=== PATIENT | male | born 1955 | race Caucasian/White ===

== ENCOUNTER 2020-03-02 13:06 | Emergency (ER) | payer SELFPAY ==
[2020-03-02] MEDS ORDERED: Sodium Chloride 0.9% 10 ML Syringe FLUSH PRN (13:51)
--- NOTE | 2020-03-02 13:58 | EDM.PDOC ---
ED HPI GENERAL MEDICAL PROBLEM - General Chief Complaint: General Stated Complaint: FEEDING TUBE ISSUE,FEET SWELLING AND WEAKNESS Time Seen by Provider: 03/02/20 13:47 Source of Information: Reports: Patient History Limitations: Reports: No Limitations - History of Present Illness INITIAL COMMENTS - FREE TEXT/NARRATIVE: 64-year-old male attends the ED in the accompaniment of his . Patient was diagnosed with cancer of the distal esophagus in August 2019. He presented with back pain and was identified on imaging studies to have metastatic disease to thoracic spine. Subsequently he has known thoracic spinal cord compression with inability to feel normal sensation in his abdomen and pelvis. He still feels he has normal sensation in his lower extremities. However he has developed significant progressive evidence of spinal cord compression over the last 3 days having gone from ability to walk with a shuffling type gait not being able to walk at all today. Patient has had treatments including some forms of chemotherapy from [facility] where he is receiving primary care. He also reportedly has had radiation to cervical 7 vertebra and 2 vertebra in his thoracic spine. Patient had a feeding tube placed left upper quadrant the abdomen in December of this year due to difficulty swallowing and continued aggressive weight loss. He is gone from 297 pounds down to approximately 130 pounds. Weight is a bit higher today probably due to fluid accumulation in his lower extremities. Patient appreciates that his lower extremities are markedly more swollen than they have been over the last week. Patient has urgency to void and no sensation to defecate. He states when he gets the sensation to either void or defecate it is urgent and he has to get there immediately. He is on a bowel regimen of Dulcolax 30 mils once or twice daily which has been keeping his bowels working twice daily. He has appreciated increased abdominal girth and firmness to the lower abdomen. He has also appreciated difficulty with his feeding tube in terms that feeding seem to be backing up and particularly coming up around the feeding tube soaking a pad at the abdominal wall. This is occurred gradually. Patient has constant pain in his thoracic spine and is supposed to be transitioned today from a fentanyl 12 micrograms per hour patch to a 25 mcg/h patch. 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 Has developed progressive weakness and loss of sensation in pelvic organs with retention of sensation in his feet. He has an urge to void and defecate and has to get to the bathroom immediately. He finds that he is voiding on average every hour which is disrupting his sleep severely.) Quality: Reports: Other (Deep aching pain in his upper thoracic spine neck. Some pain in his chest with deep inspiration.) Severity: Moderate (6 out of 10) Improves with: Reports: None Worsens with: Reports: Movement (Worse with movement.) Context: Denies: Activity, Exercise, Lifting, Sick Contact, Trauma, Other Associated Symptoms: Reports: Chest Pain (Mild nonproductive cough. With deep inspiration.), Cough, Loss of Appetite (Currently has a feeding tube in to maintain weight. Apparently receiving between 2 and 3000 fernando/day.), Malaise, Shortness of Breath, Weakness (Generalized weakness much worse for the last 3 days. He is gone from ability to stand and walk or shuffle leg gait to not being able to walk at all today.). Denies: No Other Symptoms ( Primarily in his back.), Confusion, cough w sputum, Diaphoresis, Fever/Chills, Headaches, Nausea/Vomiting, Rash, Seizure, Syncope Treatments TELEPHONER: Reports: Other (see below) (Patient is on fentanyl patch 12 mcg/h and is due to be changed to 25 mcg/h today due to increasing thoracic back pain.) Back Pain Score (Numeric/FACES): 7 Abdomen Pain Score (Numeric/FACES): 8 - Related Data Allergies Allergy/AdvReac Type Severity Reaction Status Date / Time No Known Allergies Allergy Verified 03/02/20 13:18 Home Meds: Home Meds Potassium Chloride 20 meq GTUBE BID #60 tablet.er 03/02/20 [Rx] dexAMETHasone [Decadron] 6 mg PO BID #20 tablet 03/02/20 [Rx] Past Medical History Musculoskeletal History: Reports: Back Pain, Chronic (Primarily in the thoracic spine.), Other (See Below) (Patient reports chronic neck pain. Apparently has had some form of cervical spine fusion. He reports also that he has had some form of thoracic spine fusion procedure as well.) Oncologic (Cancer) History: Reports: Other (See Below) (Diagnosed with metastatic primary esophageal cancer in August of this year. He presented with thoracic back pain which on imaging revealed to be cancer invading the bone. Patient has received some chemotherapy and radiation to cervical spine and areas of thoracic spine for pain relief.) Social & Family History - Living Situation & Occupation Living situation: Reports: Occupation: Disabled ED ROS GENERAL - Review of Systems Review Of Systems: See Below Constitutional: Reports: Malaise, Weakness, Fatigue, Weight Loss (Patient reports losing approximately 55 to 60 pounds of weight over the last 6 months.). Denies: Fever, Chills HEENT: Reports: No Symptoms Respiratory: Reports: Shortness of Breath, Cough, Other (Nonproductive.). Denies: Wheezing, Pleuritic Chest Pain, Sputum Cardiovascular: Reports: Chest Pain (Chest pain radiating to his back primarily with deep inspiration.), Dyspnea on Exertion, Orthopnea (Tends to sleep with head of bed elevated .). Denies: Blood Pressure Problem, Claudication, Lighthea dedness Endocrine: Reports: Fatigue GI/Abdominal: Reports: Abdominal Pain (Like his back.), Difficulty Swallowing (He is having trouble swallowing his normal secretions.), Other (Feeding tube left upper quadrant of the abdomen.) : Reports: Frequency (Voiding almost every hour.), Urgency (Severe urgency to void suddenly occurs) Musculoskeletal: Reports: Neck Pain, Back Pain (Metastatic disease multiple levels.) Skin: Reports: No Symptoms Neurological: Reports: Numbness, Tingling (She reports numbness and loss of sensation throughout the abdomen.), Difficulty Walking (Patient has had chronic problems walking and standing for the last several weeks. However he is gone from being able to shuffle type walk to not being able to walk at all today.), Weakness. Denies: Confusion, Dizziness, Seizure Psychiatric: Reports: No Symptoms Hematologic/Lymphatic: Reports: No Symptoms Immunologic: Reports: No Symptoms ED EXAM, GENERAL - Physical Exam Exam: See Below Exam Limited By: No Limitations General Appearance: Alert, WD/WN, Mild Distress, Other (Is 35.9 degrees. Heart rate 94 in sinus respiratory is 18 with O2 sats of 94% room air BP 122/86.) Eye Exam: Bilateral Eye: Normal Inspection (mild scleral icterus) Throat/Mouth: Other Head: Atraumatic, Normocephalic (Tongue is mildly dry and coated.) Neck: Other (Patient has evidence of previous surgery to his upper thoracic spine lower cervical spine. Kyphosis thoracic spine) Respiratory/Chest: No Respiratory Distress, Decreased Breath Sounds (Decreased air entry to the posterior lung slater bilaterally. Much worse on the left side as compared to the right.), Rales ( left lower lobe.), Rhonchi (Particularly). No: Lungs Clear, Normal Breath Sounds, Respiratory Distress Cardiovascular: Regular Rate, Rhythm, No Gallop, No Murmur, No Rub. No: Normal Peripheral Pulses, No Edema Peripheral Pulses: 1+: Posterior Tibial (L) (Also is 2 feet however severely limited by dependent edema.), Posterior Tibial (R), Dorsalis Pedis (L), Dorsalis Pedis (R), 3+: Carotid (L), Carotid (R) GI/Abdominal: Distended (The abdomen is diffusely distended and very firm to palpation from above his umbilicus to the pubic symphysis. This is compatible with severe ascites. There is increased tympany epigastrium only.), Abnormal Bowel Sounds, Other (All sounds are diminished but present in all 4 quadrants. Feeding tube present left upper quadrant of the abdomen with normal erythema at the ostomy site. There is evidence of some mucus drainage from the wound.) Extremities: Pedal Edema (Plus pitting edema above the knees bilaterally. Skin of lower extremities is taut due to edema.) Neurological: Alert, Oriented, CN II-XII Intact, Normal Cognition Psychiatric: Normal Affect, Normal Mood Skin Exam: Dry, Intact, Normal Color, Cool (Particularly below the knees.) Course - Vital Signs Last Recorded V/S: Last Vital Signs Temp 36.2 C 03/02/20 16:30 Pulse 87 03/02/20 16:30 Resp 14 03/02/20 16:30 BP 104/77 03/02/20 16:30 Pulse Ox 96 03/02/20 16:30 - Orders/Labs/Meds Orders: Active Orders 24 hr Category Date Time Status Keith Catheter Insertion [Insert Urinary Catheter] [OM. Care 03/02/20 15:15 Ordered PC] Q24H Peripheral IV Insertion Adult [OM.PC] Stat Oth 03/02/20 13:51 Ordered Labs: Laboratory Tests 03/02/20 03/02/20 03/02/20 Range/Units 14:10 14:10 14:10 WBC 6.68 (4.23-9.07) K/mm3 RBC 3.32 L (4.63-6.08) M/mm3 Hgb 8.7 L (13.7-17.5) gm/dl Hct 30.2 L (40.1-51.0) % MCV 91.0 (79.0-92.2) fl MCH 26.2 (25.7-32.2) pg MCHC 28.8 L (32.2-35.5) g/dl RDW Std Deviation 66.1 H (35.1-43.9) fL Plt Count 388 H D (163-337) K/mm3 MPV 8.6 L (9.4-12.3) fl Neut % (Auto) 81.7 H (34.0-67.9) % Lymph % (Auto) 6.6 L (21.8-53.1) % [place] % (Auto) 10.0 (5.3-12.2) % Eos % (Auto) 0.9 (0.8-7.0) Baso % (Auto) 0.4 (0.1-1.2) % Neut # (Auto) 5.45 H (1.78-5.38) K/mm3 Lymph # (Auto) 0.44 L (1.32-3.57) K/mm3 [place] # (Auto) 0.67 (0.30-0.82) K/mm3 Eos # (Auto) 0.06 (0.04-0.54) K/mm3 Baso # (Auto) 0.03 (0.01-0.08) K/mm3 Manual Slide Review Abnormal smear PT 11.9 (9.7-12.0) SECONDS INR 1.11 APTT 26.8 (21.7-31.4) SECONDS Sodium 143 (136-145) mEq/L Potassium 2.9 L D (3.5-5.1) mEq/L Chloride 99 (98-107) mEq/L Carbon Dioxide 40 H D (21-32) mEq/L Anion Gap 6.9 (5-15) BUN 36 H (7-18) mg/dL Creatinine 0.9 (0.7-1.3) mg/dL Est Cr Clr Drug Dosing 78.69 mL/min Estimated GFR (MDRD) > 60 (>60) mL/min BUN/Creatinine Ratio 40.0 H (14-18) Glucose 98 (80-115) mg/dL Calcium 8.8 (8.5-10.1) mg/dL Magnesium 2.1 (1.8-2.4) mg/dl Total Bilirubin 0.4 (0.2-1.0) mg/dL AST 25 (15-37) U/L ALT 17 (16-63) U/L Alkaline Phosphatase 124 H (46-116) U/L C-Reactive Protein 30.2 H* (<1.0) mg/dL NT-Pro-B Natriuret Pep (0-125) pg/mL Total Protein 7.4 (6.4-8.2) g/dl Albumin 1.8 L (3.4-5.0) g/dl Globulin 5.6 gm/dL Albumin/Globulin Ratio 0.3 L (1-2) Lipase (73-393) U/L Urine Color (Yellow) Urine Appearance (Clear) Urine pH (5.0-8.0) Ur Specific [place] (1.005-1.030) Urine Protein (Negative) Urine Glucose (UA) (Negative) Urine Ketones (Negative) Urine Occult Blood (Negative) Urine Nitrite (Negative) Urine Bilirubin (Negative) Urine Urobilinogen (0.2-1.0) Ur Leukocyte Esterase (Negative) Urine RBC (0-5) /hpf Urine WBC (0-5) /hpf Ur Squamous Epith Cells (0-5) /hpf Urine Bacteria (FEW) /hpf Urine Mucus (FEW) /hpf 03/02/20 03/02/20 03/02/20 Range/Units 14:10 14:10 15:20 WBC (4.23-9.07) K/mm3 RBC (4.63-6.08) M/mm3 Hgb (13.7-17.5) gm/dl Hct (40.1-51.0) % MCV (79.0-92.2) fl MCH (25.7-32.2) pg MCHC (32.2-35.5) g/dl RDW Std Deviation (35.1-43.9) fL Plt Count (163-337) K/mm3 MPV (9.4-12.3) fl Neut % (Auto) (34.0-67.9) % Lymph % (Auto) (21.8-53.1) % [place] % (Auto) (5.3-12.2) % Eos % (Auto) (0.8-7.0) Baso % (Auto) (0.1-1.2) % Neut # (Auto) (1.78-5.38) K/mm3 Lymph # (Auto) (1.32-3.57) K/mm3 [place] # (Auto) (0.30-0.82) K/mm3 Eos # (Auto) (0.04-0.54) K/mm3 Baso # (Auto) (0.01-0.08) K/mm3 Manual Slide Review PT (9.7-12.0) SECONDS INR APTT (21.7-31.4) SECONDS Sodium (136-145) mEq/L Potassium (3.5-5.1) mEq/L Chloride (98-107) mEq/L Carbon Dioxide (21-32) mEq/L Anion Gap (5-15) BUN (7-18) mg/dL Creatinine (0.7-1.3) mg/dL Est Cr Clr Drug Dosing mL/min Estimated GFR (MDRD) (>60) mL/min BUN/Creatinine Ratio (14-18) Glucose (80-115) mg/dL Calcium (8.5-10.1) mg/dL Magnesium (1.8-2.4) mg/dl Total Bilirubin (0.2-1.0) mg/dL AST (15-37) U/L ALT (16-63) U/L Alkaline Phosphatase (46-116) U/L C-Reactive Protein (<1.0) mg/dL NT-Pro-B Natriuret Pep 1415 H (0-125) pg/mL Total Protein (6.4-8.2) g/dl Albumin (3.4-5.0) g/dl Globulin gm/dL Albumin/Globulin Ratio (1-2) Lipase 22 L (73-393) U/L Urine Color Yellow (Yellow) Urine Appearance Clear (Clear) Urine pH 8.5 H (5.0-8.0) Ur Specific [place] 1.015 (1.005-1.030) Urine Protein 2+ H (Negative) Urine Glucose (UA) Negative (Negative) Urine Ketones Negative (Negative) Urine Occult Blood Trace-intact H (Negative) Urine Nitrite Negative (Negative) Urine Bilirubin Negative (Negative) Urine Urobilinogen 1.0 (0.2-1.0) Ur Leukocyte Esterase Negative (Negative) Urine RBC 0-5 (0-5) /hpf Urine WBC 0-5 (0-5) /hpf Ur Squamous Epith Cells 0-5 (0-5) /hpf Urine Bacteria Few (FEW) /hpf Urine Mucus Not seen (FEW) /hpf Meds: Medications Discontinued Medications Generic Name Dose Route Start Last Admin Trade Name Freq PRN Reason Stop Dose Admin Fentanyl 25 mcg 03/02/20 14:15 03/02/20 15:25 Duragesic TRDERM 25 mcg Q72H BLAINE Administration Iopamidol 25 ml 03/02/20 14:10 03/02/20 14:22 Isovue-300 (61%) IVPUSH 03/02/20 14:11 10 ml ONETIME ONE Administration Iopamidol 100 ml 03/02/20 14:10 03/02/20 14:22 Isovue-300 (61%) IVPUSH 03/02/20 14:11 100 ml ONETIME ONE Administration Lidocaine HCl 10 ml 03/02/20 15:09 03/02/20 15:15 Xylocaine 2% Jelly MUCMEM 03/02/20 15:10 10 ml ONETIME ONE Administration Lidocaine HCl Confirm 03/02/20 18:04 Xylocaine 2% Jelly Administered 03/02/20 18:05 Dose 10 ml .ROUTE .STK-MED ONE Sodium Chloride 10 ml 03/02/20 13:51 03/02/20 14:10 Saline Flush FLUSH 10 ml ASDIRECTED PRN Administration Keep Vein Open Sodium Chloride 10 ml 03/02/20 14:10 03/02/20 14:22 Saline Flush FLUSH 03/02/20 14:11 10 ml ONETIME ONE Administration - Radiology Interpretation Free Text/Narrative:: 64-year-old male presents to the ED for evaluation of inability to walk over the last 3 days. Patient has gone from a shuffling type gait to being unable to walk at all today. Patient was diagnosed with primary esophageal cancer with metastatic disease to his upper thoracic and lower cervical spine in August of this year. He presented with primary back pain and subsequently identified by imaging to have primary esophageal cancer. Patient has had to have cervical and upper thoracic spine fusion due to complete bone loss in the upper thoracic spine. He has had radiation to this area on 2 occasions as well. He is having troubles with feeding tube backing up on him over the last week. They are questioning whether or not the feeding tube is clogged distally. He has constant urge to void almost every hour and when he gets the urge to go he has to get there immediately. Similarly with bowel function he has lost the feeling of need to defecate and/or void until it suddenly urgent. He still feels he has normal sensation in his lower extremities but appreciates that there is some numbness in both lower extremities. Both lower extremities also become grossly edematous over the last couple of weeks. Patient is known to have spinal cord compression from tumor spread to the upper thoracic spine. Plan he will have CT of the chest abdomen pelvis with IV contrast only. He will also have CT of the thoracic spine. Routine labs to be performed - Re-Assessments/Exams Free Text/Narrative Re-Assessment/Exam: 03/02/20 14:47 Total white count is normal at 6.68. The differential shows 81.7% neutrophils. Hemoglobin is low at 8.7 with hematocrit of 30.2. Platelet count is slightly elevated at 388,000 03/02/20 15:11 I have presented the findings to the patient and his . He has severe ascites and a large left-sided pleural effusion on CT scan. There are multiple pulmonary nodules throughout both lung slater there are at least 6 nodules on the right side largest nodule measures approximately 2.6 cm in size. No definitive left-sided pulmonary nodule is seen but it probably is obscured f rom effusion. Thoracic aorta shows no aneurysm. Subcarinal adenopathy is seen measuring roughly 3.8 cm in size. Multiple hilar lymph nodes are seen on the right side. There is a lymph node noted within the right mediastinum adjacent to the aortic arch measuring approximately 2.5 cm. There are severe areas of atelectasis because of the pleural effusion on both sides worse on the left side. Small right-sided pleural effusion is seen with much larger left-sided pleural effusion obscuring approximately 40% of the lung field on the left side. Bone window settings were reviewed which show previous thoracic spine surgery. CT of the abdomen pelvis are diffusely filled with ascites. Low-density lesions are seen within the right and left lobes of the liver. Largest abnormality measures approximately 3.3 cm in size and findings are compatible with metastatic disease. Spleen shows no focal abnormality. Moderate-sized hiatal hernia is noted. Adrenal glands show no discrete nodule. Pancreas is not well seen because of the ascites but there does appear to be a low-density pancreatic mass near the junction of the neck to body measuring about 1.7 cm. Kidneys show symmetric contrast enhancement with no hydronephrosis. Aorta shows mild atherosclerotic change with no aneurysm. No definite retroperitoneal adenopathy is seen. No discrete pelvic mass or adenopathy is noted. There is soft tissue density anteriorly in the region of the greater omentum suspicious for metastatic disease. Bone window settings were reviewed and show a lytic lesion within lumbar 3 vertebra which has a coarse trabecular pattern is most likely due to hemangioma. Scattered degenerative changes otherwise noted. Gastrostomy tube is present in the upper left abdomen. Diffuse body wall edema is noted. CT of the thoracic spine shows the thoracic aorta be normal with no aneurysm. Subcarinal adenopathy is measuring approximate 3.8 cm in size. Multiple hilar lymph nodes are seen on the right side as reported in previous CT of the chest. There is advanced degenerative change in the upper thoracic vertebra I believe T1-T4 and also lytic lesion in C7 vertebra with nearly complete loss of all of these. Posterior lytic lesions are seen at T3-T4 with evidence of prior surgery there are fixation screws between T1 and 2 and T5-T6. No central canal stenosis or discrete neuroforaminal stenosis is appreciated. MRI done in the past does reveal spinal cord compression from tumor. Patient has therefore opted for hospice arrangement. I will have the social worker palliative care see them in consultation to help arrange this. The problem with his feeding tube is not so much that it is occluded but that the stomach is being compressed from severe ascites. It just cannot expand to tolerate large doses of liquid at a time. It is probably best that the patient receives his nutrition through the G-tube overnight and perhaps 1 feeding during the day over period of 4 hours versus 100 mils every 5 hours. Problem with the urinary bladder is again due to compression of the urinary bladder from severe ascites. Patient has opted for a urinary catheter at his own request because he cannot tolerate getting up every hour and having severe disrupted sleep. Therefore a Keith catheter will be placed. will be taught how to empty the Keith catheter drainage bag and advise cleansing of the penis daily around the catheter site with soap and water to prevent infection and placing bacitracin ointment at the opening of the urethral meatus daily to prevent development of urinary tract infection. I am going to place the patient on dexamethasone 4 mg crushed per G-tube 2 times daily in an effort to help his appetite as well as potentially reduce swelling of his spinal cord and possible getting walking again. Suggest a trial of steroid for 10 days. 03/02/20 15:39 PT is 11.9 with an INR of 1.11. PTT is 26.8. Sodium is 143 potassium is low at 2.9. Chloride is 99 with a bicarb of 40. Anion gap is 6.9 BUN is 36 with a creatinine of 0.9 GFR is greater than 60. Glucose is 98 with a calcium of 8.8. Magnesium is 2.1. Liver function is normal other than slightly elevated alkaline phosphatase at 124. BNP is elevated at 1415. Total protein 7.4 with a low albumin of 1.8. Urinalysis will be obtained upon catheterization. Patient will be placed on potassium supplementation with 20 mEq of K. Dur crushed twice daily and placed per gastrostomy tube. The worker has visited with the patient and his and referral to hospice has been arranged and appropriate forms filled out by me. Tentatively they will see him tomorrow. Departure - Departure Time of Disposition: 15:50 Disposition: Home, Self-Care 01 Condition: Poor Clinical Impression: Primary esophageal malignancy, Adenocarcinoma carcinomatosis, Anasarca, Pleural cavity effusion, Ascites, malignant, Urinary urgency, Feeding by G-tube - Discharge Information *PRESCRIPTION DRUG MONITORING PROGRAM REVIEWED*: Not Applicable *COPY OF PRESCRIPTION DRUG MONITORING REPORT IN PATIENT ANTHONY: Not Applicable Prescriptions: dexAMETHasone [Decadron] 6 mg PO BID #20 tablet Potassium Chloride 20 meq GTUBE BID #60 tablet.er Instructions: Esophageal Cancer, How to Care for a Feeding Tube, [id number], Gastrostomy Tube Home Guide, Adult Referrals: Ade Carias MD [Primary Care Provider] - Forms: ED Department Discharge Additional Instructions: Evaluation in the emergency room today in regards to problems identified with feeding tube with reflux of feedings either around the feeding tube at the ostomy site or back up into the feeding tube itself. Secondary problem if urinary urgency with need to void on an hourly basis severely disrupting sleep pattern. Severe change in ability to walk over the last 3 days. Not able to walk at all today. These findings are secondary to primary esophageal cancer diagnosed in August 2019. Metastatic disease to upper thoracic spine and cervical 7 vertebra evident with previous surgical fixation with pedicle screws in thoracic 1 and thoracic 2 vertebra and thoracic 5 and thoracic 6 vertebra. There is advanced cancerous destruction of vertebra thoracic 3 and 4. This also shows an area of compression of the spinal cord due to tumor. This is the primary cause of loss of ability to walk. It is also the cause of altered sensation in the abdomen with sudden need of urge to have a bowel movement or need to empty the bladder. CT scan of the abdomen reveals advanced cancer spread to the liver which is causing the liver to weep fluid and protein into the abdominal cavity with a large collection of fluid within the abdominal cavity called ascites. This fluid would be almost a gallon and a half of fluid and would account for 15 pounds of weight. The fluid is compressing the urinary bladder and will not allow it to fill appropriately and therefore the need to void or empty your bladder so often. It is also compressing the stomach with the stomach now down to about a quarter of its normal size and it cannot expand to accept feedings. Feedings are going to need to be given more slowly and over a longer period of time. As we discussed pain management has been addressed with change in fentanyl patch from 12 mcg/h to 25 mcg/h and started in the ED. Keith catheter has been placed at your request to aid with constant need to void and current inability to walk. Suggest daily cleanse around the catheter site at the insertion into the penis with slight soap and water usually Dove or Ivory. Then apply bacitracin ointment around the Keith catheter where it enters the penis to prevent secondary infection. Bacitracin is a ointment that is [id number] at the drugstore. Suggest treatment with dexamethasone 6 mg tablet crushed twice daily and given through G-tube morning and around supper for the next 10 days to see if this will help alleviate pain and perhaps spinal cord compression. Test also revealed that your serum potassium is low. This is due to not being able to eat. Suggest potassium replacement therapy with Slow-K 20 mg twice daily through the G-tube. squadron worker will see you in consultation in the ED and arrange for hospice care in your home. Hospice management will be primarily addressed with your primary care provider Ade Carias. Sepsis Event Note (ED) - Evaluation Sepsis Screening Result: No Definite Risk - Focused Exam Vital Signs: Vital Signs Temp Pulse Resp BP Pulse Ox 03/02/20 16:30 36.2 C 87 14 104/77 96 03/02/20 13:18 35.9 C L 94 18 122/86 94 L - My Orders Last 24 Hours: My Active Orders 03/02/20 13:51 Peripheral IV Insertion Adult [OM.PC] Stat 03/02/20 15:15 Keith Catheter Insertion [Insert Urinary Catheter] [OM.PC] Q24H - Assessment/Plan Last 24 Hours: My Active Orders 03/02/20 13:51 Peripheral IV Insertion Adult [OM.PC] Stat 03/02/20 15:15 Keith Catheter Insertion [Insert Urinary Catheter] [OM.PC] Q24H
[2020-03-02] MEDS ORDERED: Iopamidol 612 MG/ML 100 ML Bottle IVPUSH ONE (14:10)
[2020-03-02] MEDS ORDERED: Sodium Chloride 0.9% 10 ML Syringe FLUSH ONE (14:10)
[2020-03-02] MEDS ORDERED: Iopamidol 612 MG/ML 50 ML SDV IVPUSH ONE (14:10)
[2020-03-02] MEDS ORDERED: fentaNYL 25 MCG/HR Transdermal Patch TRDERM SCH (14:15)
--- NOTE | 2020-03-02 14:55 | CT ---
CT thoracic spine Technique: Multiple axial sections through the thoracic spine were obtained. Reconstructed sagittal and coronal images were obtained. Findings: Surgery is identified. Lytic lesion is identified within the C7 vertebral body. Posterior lytic lesions are seen at T3 and T4 with evidence of prior surgery. There are fixation screws between T1-2 and T5-6. Other scattered degenerative change is seen. No other lytic lesions are seen. No central canal stenosis or discrete neural foraminal stenosis is appreciated. Impression: 1. Lytic lesion within C7 involving the vertebral body. 2. Prior surgery as noted above affixing previous lytic lesions. 3. Degenerative change. Diagnostic code #9
--- NOTE | 2020-03-02 15:07 | CT ---
CT chest Technique: Multiple axial sections were obtained from above the lung apices inferiorly through the lung bases. Intravenous contrast was utilized Comparison: No prior study. Findings: Thoracic aorta shows no aneurysm. Subcarinal adenopathy is seen measuring roughlyl 3.8 cm in size. Multiple hilar lymph nodes are seen on the right side. There is a lymph node noted within the right mediastinum adjacent to the aortic arch measuring approximately 2.5 cm. Small right-sided pleural effusion is seen with larger left-sided pleural effusion. There are at least 6 pulmonary nodules on the right side. Largest nodule measures approximately 2.6 cm in size. No definite left-sided pulmonary nodule is seen. There are areas of atelectasis because of the pleural effusion seen on both sides, worse on the left side. Bone window settings were reviewed which show previous thoracic spine surgery. No definite acute abnormality is otherwise appreciated. Impression: 1. Pleural effusions on both sides, larger on the left side showing adjacent atelectasis. 2. Mediastinal adenopathy as well as pulmonary nodules which is compatible with metastatic disease. 3. Prior thoracic spine surgery which is likely old. Diagnostic code #9 CT abdomen and pelvis Technique: Multiple axial sections were obtained from above the dome of the diaphragm inferiorly through the pubic symphysis. Intravenous contrast was utilized. No oral contrast is present. Comparison: No prior abdominal imaging is available. Findings: Abdomen and pelvis are diffusely filled with ascites. Low-density lesions are seen within the right and left lobes of the liver. Largest abnormality measures approximately 3.3 cm in size and findings are compatible with metastatic disease. Spleen shows no focal abnormality. Moderate sized hiatal hernia is noted. Adrenal glands show no discrete nodule. Pancreas is not well seen because of the ascites but there does appear to be a low density pancreatic mass near the junction of the neck to body measuring about 1.7 cm. Kidneys show symmetric contrast enhancement with no hydronephrosis. Aorta shows mild atherosclerotic change with no aneurysm. No definite retroperitoneal adenopathy is seen. No discrete pelvic mass or adenopathy is appreciated. There is soft tissue density anteriorly in the region of the greater omentum suspicious for metastatic disease. Bone window settings were reviewed which show a lytic lesion within L3 which has a coarse trabecular pattern and most likely is due to hemangioma. Scattered degenerative change is otherwise noted. Gastrostomy tube is present. Diffuse body wall edema is also noted. Impression: 1. Findings compatible with liver metastasis. Probable findings of metastasis within the greater omentum. 2. Small low density finding within the pancreas suspicious for metastatic disease. 3. Abdomen and pelvis are completely filled with ascites. Diagnostic code #9
[2020-03-02] MEDS ORDERED: Lidocaine 2% Jelly 10 ML Urojet MUCMEM ONE (15:09)
[2020-03-02] MEDS ORDERED: Lidocaine 2% Jelly 10 ML Urojet ONE (18:04)
== END 2020-03-02 16:40 | disposition home or self-care (01) ==
LOC: JD.ED 13:06
DX: C15.9 Malignant neoplasm of esophagus, unspecified (principal); R18.0 Malignant ascites; C79.89 Secondary malignant neoplasm of other specified sites; J90 Pleural effusion, not elsewhere classified; K94.29 Other complications of gastrostomy; R39.15 Urgency of urination
CPT/HCPCS: 36415; 51702; 71260; 72128; 74177; 80053; 81001; 83690; 83735; 83880; 85025; 85610; 85730; 86140; 99284; A9270; Q9967